=== PATIENT | male | born 1970 | race Caucasian/White ===

== ENCOUNTER 2022-06-23 16:22 | Outpatient (REF) | payer OTHER, SELFPAY | END 2022-06-23 16:23 | disposition home or self-care (01) | LOC: LBN 16:22 | PROVIDERS: PCP Nurse Practitioner Adult Health; Visit Provider Nurse Practitioner Family | DX: L02.811 Cutaneous abscess of head [any part, except face] (principal) | CPT/HCPCS: 87070; 87205 ==

== ENCOUNTER 2023-09-21 02:21 | Outpatient (CLI) | payer OTHER, SELFPAY ==
[2023-09-21 08:53] LABS: ALT 21 U/L (16-63); AST 13 U/L (15-37); Albumin 3.9 g/dL (3.4-5.0); Alkaline Phosphatase 40 U/L (46-116); Anion Gap 8.1 mmol/L (3-11); BUN 15 mg/dL (7-18); CO2 30.9 mmol/L (21.0-32.0); Calculated LDL 128 mg/dL (<100); Chloride 105 mmol/L (98-107); Cholesterol 205 mg/dL (<200); Glucose 108 mg/dL (74-106); HDL Cholesterol 49 mg/dL (40-60); Sodium 144 mmol/L (136-145); Total Protein 7.8 g/dL (6.4-8.2); Triglyceride 141 mg/dL (<150)
== END 2023-09-21 02:22 | disposition home or self-care (01) ==
LOC: LBO 02:21
PROVIDERS: PCP Family Medicine; Referring Provider Family Medicine; Visit Provider Family Medicine
DX: Z00.00 Encounter for general adult medical examination without abnormal findings (principal); Z13.6 Encounter for screening for cardiovascular disorders
CPT/HCPCS: 36415; 80053; 80061

== ENCOUNTER → 2023-10-19 02:03 | Outpatient (CLI) | payer OTHER, SELFPAY ==
--- NOTE | 2023-10-19 07:31 | DI.CT_ITS ---
Exam(s) CT ABDOMEN PELVIS W EXAM: CT ABDOMEN PELVIS W CLINICAL HISTORY: recurrent right inguinal hernia,k40.91,k40.90. TECHNIQUE: Imaging Protocol: Axial computed tomography images with coronal and sagittal reformatted images were created and reviewed CONTRAST MATERIAL: Intravenous: Omnipaque 350 Contrast volume:100 ml Oral: yes / COMPARISON: No exams were available for comparison FINDINGS: ABDOMEN and PELVIS: Lung Bases: No acute findings. Liver: Normal density. No measurable mass. Gallbladder and biliary tract: No radiodense calculus or dilation. Pancreas: Normal density. No abnormal calcifications or inflammatory process. No evidence of mass. Spleen: Normal. Kidneys: Normal size, contour and axis. No radiodense stones. No obstructive uropathy. No suspicious masses seen. Adrenal glands: No masses seen. Vasculature: Abdominal aorta non-dilated. Soft tissues: Prior right inguinal hernia repair. Recurrent large right inguinal hernia containing l oops of nonobstructed small bowel. Wide hernia neck. Small fatty containing left inguinal hernia. Bladder: No gross wall thickening. No calculi.No focal mass. Bowel: No obstruction. No bowel wall thickening. Appendix normal. Peritoneal cavity: No ascites. No focal collection or mesenteric inflammatory response. Bones: Unremarkable for age. Reproductive organs: Within normal limits. Lymph nodes: Unremarkable. IMPRESSION:: Large recurrent right inguinal hernia containing loops of nonobstructed small bowel. S mall left fatty containing inguinal hernia. RADIATION DOSE DELIVERED: 1,393.14mGy.cm Total DLP DATA REPOSITORY: All CT scans at this facility are submitted to the National Radiology Data Registry (NRDR) Dose Index Registry (DIR) with the [employer] ([employer]). RADIATION OPTIMIZATION: All CT scans at this facility use at least one of these dose optimization te chniques: automated exposure control; mA and/or kV adjustment per patient size (includes targeted exa ms where dose is matched to clinical indication); or iterative reconstruction.
[2023-10-19] MEDS: Barium Sulfate 2% W/V-Berry Smoothie 450 ML BTL PO ×2 (12:33→12:34)
[2023-10-19 13:03] LABS: Abs Immature Grans 0.03 10^3/uL (0.0-0.06); Absolute Basophil Count 0.04 10^3/uL (0.0-0.2); Absolute Eosinophil Count 0.05 10^3/uL (0.0-0.7); Absolute Lymphocyte Count 2.01 10^3/uL (1.2-3.4); Absolute Monocyte Count 0.43 10^3/uL (0.1-0.8); Absolute Neutrophil Count 6.92 10^3/uL (1.2-6.7); Basophils % 0.4; Eosinophils % 0.5; HCT 45.7 % (40.0-50.0); HGB 15.4 g/dL (13.5-17.5); Immature Grans % 0.3; Lymphocytes % 21.2; MCH 31.4 pg (27.0-33.0); MCHC 33.7 % (32.0-36.0); MCV 93 fL (80-95); MPV 9.3 fL (8.0-11.0); Monocytes % 4.5; Neutrophils % 73.1; Platelet Count 310 10^3/uL (130-400); RBC 4.91 10^6/uL (4.36-5.78); RDW 12.7 % (11.8-14.1); RDW-SD 43.3 fL; WBC 9.48 10^3/uL (4.4-10.8)
[2023-10-19 13:17] LABS: ALT 22 U/L (16-63); AST 14 U/L (15-37); Albumin 4.3 g/dL (3.4-5.0); Alkaline Phosphatase 43 U/L (46-116); Anion Gap 10.4 mmol/L (3-11); BUN 15 mg/dL (7-18); Bilirubin, Total 1.4 mg/dL (0.2-1.0); CO2 26.6 mmol/L (21.0-32.0); CREATININE 0.9 mg/dL (0.70-1.30); Calcium 9.4 mg/dL (8.5-10.1); Chloride 106 mmol/L (98-107); Estimated GFR 102.12 (mL/min/1.73m2); Glucose 93 mg/dL (74-106); Potassium 3.7 mmol/L (3.5-5.1); Sodium 143 mmol/L (136-145); Total Protein 7.8 g/dL (6.4-8.2)
[2023-10-19] MEDS: Normal Saline - Diluent 50 ML VIAL IJ (14:39)
[2023-10-19] MEDS: Omnipaque 350 MG/ML 100 ML BTL IJ (14:39)
[2023-10-19] MEDS: Normal Saline Flush 10 ML SYR IVP (14:40)
== END ==
PROVIDERS: PCP Family Medicine; Visit Provider Surgery
DX: K40.91 Unilateral inguinal hernia, without obstruction or gangrene, recurrent (principal)
CPT/HCPCS: 80053; 74177; 85025; J3490

== ENCOUNTER 2023-10-26 06:09 | Day surgery (SDC) | payer OTHER, SELFPAY ==
--- NOTE | 2023-10-25 16:21 | PDOC.DSDIS_ITS ---
Date of service: 10/26/23 Time of Service: 11:56 Discharge Plan Disposition Patient Disposition: Home Condition: Good Discharge Details Reason For Visit: right inguinal hernia repair Attending Provider: Kenzie Polanco Primary Care Provider: Aly Luther Home Meds and New Rx's Prescriptions: New tramadol 50 mg tablet 50 mg PO Q4H PRNQty: 14 0RF Continued fexofenadine [Breonna Allergy] 180 mg tablet 180 mg PO DAILY Desgen DM (pseudoephedrine) 30-10-200 mg tablet 1 cap PO ONCE Discharge Instructions Additional Instructions: Dr. Polanco HERNIA REPAIR ? POSTOPERATIVE INSTRUCTIONS Patients who have this type of surgery can usually be expected to return to work within two weeks and have minimal amounts of discomfort. ? ACTIVITY: The day of surgery should be spent resting. However, you can be up for short periods of time, I.E., going to the bathroom or kitchen. Avoid lifting or straining. On the day following surgery, you can be up and about as desired. ? LIFTING: Restrict your lifting to no more than five (5) pounds for two weeks after surgery. ??We will decide when you are done with restrictions and when you can return to work, at your follow-up appointment.? No sexual activity for two weeks.? ? DIET: There are no dietary restrictions following surgery. However, you may want to start with small amounts of liquids to avoid nausea the day of surgery. ? INCISION CARE: You will notice purple skin glue closing the incision.? Do not peel this off- it will wear off on its own.? After 24 hours you may shower. The dressing may be replaced for comfort, but is not necessary. ?An ice bag may be applied to the incision for 72 hours following surgery. ? SIGNS OF INFECTION: It is not unusual to have some black and blue discoloration of the skin around the incision, but also scrotum and penis.? ?It will slowly disappear. If you have any increased redness, drainage, fever (above 100 degrees), please contact your doctor for an examination. ? DISCOMFORT: You may expect to have some mild discomfort at the incision sight. If severe pain develops you should contact your doctor for further instructions. ? URINATION: Patients who have surgery occasionally have problems urinating. If you experience problems and are not able to urinate within 6 hours following your surgery, please call your doctor immediately or go to your nearest Emergency Room for evaluation. ? DRIVING: NO driving for three (3) days after surgery, or if you are still taking narcotic pain medication.? ? MEDICATIONS: Alternate Tylenol 1000mg by mouth every 8 hours and Ibuprofen 600mg every 6 hours. ?Make sure you take ibuprofen with food and not on an empty stomach. ?Take the Tylenol and ibuprofen continuously for the first 72hrs- not just when you have pain.? Use the tramadol for breakthrough pain/pain >7.? Use ICE!?? Twenty minutes on, and then off, continuously for the first 72hours. If you are taking narcotic pain medication, follow the instructions on the label and do not drive. Pain medications can make you very constipated. Make sure you are moving your bowels daily. If not, take Miralax or Milk of Magnesia.?? Anesthesia makes you very constipated.? Take a dose of milk of magnesia the morning after surgery. ? REPORT: Unusual swelling, severe pain, unresolved nausea, signs of infection, or difficulty in urination to your surgeon. Follow up in clinic with Dr. Polanco in 2 weeks.? [phone] Stand Alone Forms: Anesthesia Discharge Inst., Marni.Nerve Block Instructions, Dwayne Santos ([facility]) Activity:: see above Remove Dressings/Wound Care:: 24 hours Shower/Bathe:: 24 hours Diet:: see above Discharge Orders Discharge Orders: Discharge Order (Routine); Ordered 10/26/23 Ordered By: Kenzie Polanco DS: Diagnosis Discharge Diagnosis (1) Recurrent right inguinal hernia: Status: Acute Asessment and Plan: The patient is doing well post-op from their right inguinal hernia repair.? They are having no nausea or vomiting. They are tolerating liquids and a snack. The pt is not having any chest pain or SOB.? Their pain is adequately controlled. They have been able to urinate.? ?HEENT:? no eye pain/drainage/redness/swelling. Mild sore throat ?Cardio- NSR, no chest pain, BP stable- see VS record ?Pulm: no sob or productive cough. No hemoptysis ?Incision- dressing is c/d/i w/ no excessive bleeding or drainage ?I discussed with the patient the findings at the time of surgery and the patient?s progress. ?We reviewed expectations at home; what the patient could expect for recovery time, and in the post-operative period.? We discussed the importance of walking to avoid blood clots and pneumonia.? We discussed and reviewed the patient's po st-operative wound care and dressing needs.?? We reviewed their step-clarke pain management plan, Rx called to the pharmacy of their choice.? We reviewed activity and limitations-see discharge instructions. We reviewed warning signs, and when to seek medical attention- see d/c instructions.?? Patient was given a postoperative follow-up appointment. Patient verbalized understanding of their postoperative instructions, how do to take care of themselves and their incision, and the pain management plan. Please see discharge instructions.?
--- NOTE | 2023-10-25 16:25 | ROE_ITS ---
Date of service: 10/26/23 Time of Service: 10:00 Operative Note Operative Note DATE OF PROCEDURE: 10/26/23 PRE-OP DIAGNOSIS: recurrent direct right inguinal hernia POST-OP DIAGNOSIS: same new onset A. fib PROCEDURE: open repair recurrent right inguinal hernia SURGEON: Kenzie Polanco ANESTHESIA TYPE: Local By Surgeon, General LMA/ETT and Primary Nerve Block Refer to Anesthesia Record ESTIMATED BLOOD LOSS: 5 PATHOLOGY: none sent COMPLICATIONS: None Patient was transported to: PACU Patient's condition: stable Procedure Description: INDICATIONS: The pt is here today for surgery regarding symptomatic recurrent right directinguinal hernia that has failed outpatient conservative medical management and he is here today for repair. He did have mesh placed previously. informed consent was obtained, explaining risks and benefits of the procedure including but not limited to bleeding, infection, pneumonia, blood clots, chronic pain, chronic numbness, damage to testicle resulting in removal, recurrence of hernia, reaction to Mesh necessitating removal, and other unforetold complications, and complications of anesthesia-which were addressed by the SEATING UPHOLSTERER. The patient is marked in preOp prior to the procedure DESCRIPTION OF PROCEDURE:? The pt is then brought to the operative room suite. Anesthesia was administered per the Department of Anesthesia. The patient was prepped and draped in the usual sterile fashion using ChloraPrep scrub solution. Pause for the cause was done. He did receive preop IV antibiotics, and 30 mL of .25% Marcaine w/ epinephrine was used for local anesthetization. A #12 blade was used to make an incision over the external ring. Electrocautery used to provide hemostasis and dissect down to the fascia. The fascia was pretty much obliterated and there was nothing to open. The cord is elevated. The nerve was not identified. There is not a? cord lipomas. ?Electro-cautery is used to provide hemostasis. A Roderick drain was placed around the cord to assist in mobilization. The cord was explored. There was no hernia sac on the cord. There is a very large direct hernia pushing through the floor. the hernia lies medial to the previous mesh that was placed. I removed about 50% of the flat mesh. I could not identify a plug. e transversalis in this area is pretty much obliterated. The sac is dissected out from and off the old mesh. There is a significant amount tissue reaction/the mesh is well incorporated into the tissue. There is no signs of chronic infection or inflammation. The sac is opened and does contain omentum. The sac is excised. The omentum is excised using the LigaSure. A extra-large plug is then placed into the defect this is oversewn between what is remaining of the trancversalis superiorly and then onto old mesh inferiorly. There is no transversalis inferiorly. the patch was then placed on the floor and sewn in using 2-0 Vicryl sewn into the pubic tubercle and the conjoint tendon and onto the old mesh.? The tails of the mesh are brought around the very superior portion of the cord and tucked under the rements of the external oblique. The external oblique is intimately adhered to the mesh. ?The wound was copiously irrigated. There was no bleeding noted. The drain was placed. The drain is removed.? All structures are returned to there normal anatomic position.? The external oblique is than closing in a running fshion with 2-0 vicryl, taking care to not incorporate the nerve into the incision. Deep tissue was approximated with 3-0 Vicryl and skin was approximated with 4-0 Monocryl in a running subcuticular fashion. Steri tapes and sterile dressings are applied. The patient tolerated the procedure without complications to recovery in stable condition.
--- NOTE | 2023-10-25 18:24 | ANES.PREOP_ITS ---
General Info Date of Service Date Performed: 10/26/23 Height: 5 ft 11.75 in Weight: 106.594 kg Body Mass Index (BMI): 32.1 Surgical Procedure: Operation Date: 10/26/23 07:40 Proposed Procedure Side Surgeon p Herniorrhaphy Inguinal Right Kenzie Polanco DO Meds Allergies and Home Medications Allergies Allergy/AdvReac Type Severity Reaction Status Date / Time Penicillins Allergy unknown Verified 10/26/23 06:19 Home Medication Medication Instructions Recorded fexofenadine 180 mg tablet 180 mg PO DAILY 09/10/23 (Breonna Allergy) [id number] 30 1 cap PO ONCE 10/11/23 mg-10 mg-200 mg tablet (Desgen DM (pseudoephedrine)) Current Visit Medications: Current Medications Generic Name Dose Route Start Last Admin Trade Name Freq PRN Reason Stop Dose Admin Acetaminophen 1,000 mg 10/26/23 06:00 Acetaminophen 500 Mg Tab PO 10/26/23 16:00 PREOP BUTCH Gabapentin 600 mg 10/26/23 06:00 Gabapentin 300 Mg Cap PO 10/26/23 16:00 PREOP BUTCH Ringer's Solution 1,000 mls @ 80 mls/hr 10/26/23 06:00 IV 11/24/23 23:59 INFUSION BUTCH Clindamycin Phosphate/Dextrose 600 mg in 50 mls @ 100 mls/hr 10/26/23 06:00 Cleocin In D5w IVPB 10/26/23 16:00 PREOP BUTCH Ondansetron HCl 4 mg/ Sodium 52 mls @ 200 mls/hr 10/26/23 04:15 Chloride IVPB 11/25/23 04:14 Q6H PRN PRN IV Miscellaneous Supplies 1 each 10/26/23 06:00 Iv Access IV 11/24/23 23:59 DIRECTED BUTCH Morphine Sulfate 2 mg 10/26/23 04:15 Morphine 4 Mg/Ml Syr IVP 11/25/23 04:14 Q1H PRN PRN Sodium Chloride 0 ml 10/26/23 06:00 Normal Saline Flush 10 Ml Syr IV 11/24/23 23:59 PRN PRN Sodium Chloride 0 ml 10/26/23 06:00 Normal Saline 10 Ml Vial IJ 11/24/23 23:59 DIRECTED PRN Sterile Water 0 ml 10/26/23 06:00 Water,Injection,Sterile 10 Ml Vial IJ 11/24/23 23:59 DIRECTED PRN Tramadol HCl 50 mg 10/26/23 04:15 Tramadol 50 Mg Tab PO 11/25/23 04:14 Q6H PRN PRN Pain PFSH Active Problems Active Problems: Problem Status Onset Code Recurrent right inguinal hernia K40.91 Inguinal hernia of left side without obstruction or gangrene K40.90 Surgical History Surgical History H/O inguinal hernia repair (09/05/12) Tobacco Smoking/Tobacco Use Status: Never Second hand exposure: No Alcohol Alcohol Intake: never Substance Use Substance use: Never Substance use type: does not use Vital Signs and Lab Results Vital Signs Most Recent Vital Signs in EMR: Temp Pulse Resp BP Pulse Ox 36.1 C L 70 16 137/91 H 98 10/26/23 06:09 10/26/23 06:09 10/26/23 06:09 10/26/23 06:09 10/26/23 06:09 Lab Results Blood Type / Crossmatch: No Data to Display Complete Blood Count: White Blood Count 9.48 10^3/uL (4.4-10.8) 10/19/23 12:56 Red Blood Count 4.91 10^6/uL (4.36-5.78) 10/19/23 12:56 Hemoglobin 15.4 g/dL (13.5-17.5) 10/19/23 12:56 Hematocrit 45.7 % (40.0-50.0) 10/19/23 12:56 Platelet Count 310 10^3/uL (130-400) 10/19/23 12:56 Complete Metabolic Panel: Sodium 143 mmol/L (136-145) 10/19/23 12:56 Potassium 3.7 mmol/L (3.5-5.1) 10/19/23 12:56 Chloride 106 mmol/L (98-107) 10/19/23 12:56 Carbon Dioxide 26.6 mmol/L (21.0-32.0) 10/19/23 12:56 BUN 15 mg/dL (7-18) 10/19/23 12:56 Creatinine 0.9 mg/dL (0.70-1.30) 10/19/23 12:56 Est GFR (CKD-EPI 2020) 102.12 (mL/min/1.73m2) 10/19/23 12:56 Calcium 9.4 mg/dL (8.5-10.1) 10/19/23 12:56 Albumin 4.3 g/dL (3.4-5.0) 10/19/23 12:56 Glucose 93 mg/dL (74-106) 10/19/23 12:56 Liver Function Panel: Alanine Aminotransferase (ALT/SGPT) 22 U/L (16-63) 10/19/23 12: 56 Aspartate Amino Transf (AST/SGOT) 14 U/L (15-37) L 10/19/23 12: 56 Coagulation Panel: No Data to Display Cardiac Panel: No Data to Display Arterial Blood Gas: No Data to Display Venous Blood Gas: No Data to Display Pancreas Panel: No Data to Display Thyroid Panel: No Data to Display Infectious Disease: No Data to Display Blood Cultures: No Data to Display Toxicology Panel: No Data to Display Anesthesia Assessment and Plan Anesthesia History Personal History: No History of Anesthesia Complications Family History: No Family History of Anesthesia Complications Exercise Tolerance Exercise Tolerance: Metabolic Equivalents>4 Cardiac & Pulmonary Exam Cardiac Exam: Normal S1/S2 Heart Sounds Pulmonary Exam: Clear Bilateral Breath Sounds Implantable Cardiac Device Does patient have a Pacemaker or an ICD?: No Airway Exam Known Difficult Airway: No Mallampati Class: 3 Mouth Opening: Normal (> 3cm) Thyromental Distance: Greater than 3 cm Neck Range of Motion: Full ROM Neck Circumference: Thick Teeth Condition: Normal Dentition ASA Classification ASA Score: ASA 2 Emergency Case?: No NPO Status NPO Status: NPO Clears >2 hours, Solids >8 hours Anesthesia Plan Resuscitation Status: Full Code Anesthesia Technique: General Anesthesia Airway Planned: LMA Pain Management: Surgeon and patient request nerve block Monitors Used: Standard Monitors Preoperative Comments:: 53 yo male for hernia repair. Sig PMHx: never smoker,
[2023-10-26] VITALS (7 sets, daily range): BP systolic 107–137; BP diastolic 81–93; PULSE 70–90; RESP 16–19; TEMP 36.1–36.3; O2SAT 96–100; BMI 32.1
[2023-10-26] MEDS: Gabapentin 300 MG CAP 600 MG PO (06:34)
[2023-10-26] MEDS: Acetaminophen 500 MG TAB 1000 MG PO (06:34)
[2023-10-26] MEDS: Lactated Ringers 1,000 ML 80 ML IV (06:38)
--- NOTE | 2023-10-26 08:00 | RT.EKG_ITS ---
APPROVED REPORT Exam: Resting ECG Reason for Exam: ? new onset afib. Patient Location: O HR:92 bpm ECG Measurements Heart Rate 92 AXIS [place] [id number] P [id number] QRSd 89 QRS 44 QT 380 T 29 QTc 468 Conclusion Atrial fibrillation...V-rate 80-116, irreg A-activity Otherwise normal ECG
--- NOTE | 2023-10-26 08:22 | W.ANESNERVE ---
Nerve Block Single Injection Procedure Date and Time Date Performed: 10/26/23 Procedure Start: 07:54 Location Where Procedure Performed Procedure Location: Operating Room Procedure Stop: 08:00 Reason Performed: Postoperative Analgesia Requesting Provider: Kenzie Polanco Timeout Performed Timeout Performed: Yes Monitoring Used ECG, Blood Pressure, SpO2 and ETCO2 Sterility Sterility: Hand Hygiene, Surgical Cap, Surgical Mask, Sterile Gloves and Chlorhexidine Sedation Given During Procedure Sedation Given (Indicate Dose Given): No Sedation given Patient Mental Status Patient Mental Status: Performed under general anesthesia Nerve Block 1st Nerve Block: Laterality: Right Block Type: TAP Unilateral Ultrasound Image Saved?: Yes Needle / Catheter Used: 100mm SonoPlex II Local Anesthetic Bolus (Indicate Dose Given): Bupivacaine 0.375% Dose:: 12 mL Additives (Indicate Dose Given): Epinephrine to make 1:400,000 (2.5mcg/ml) Dose:: 30 mcg and Precedex Dose:: 40 mcg Ultrasound: Sterile probe cover and gel used Nerve Stimulator: Not Used Paresthesia: None Procedure Tolerated: No Complications Procedure Outcome: Successful Procedure Comment: challenging anatomy on US. Performed By: Joe Silva
[2023-10-26] MEDS: Bupivacaine LIPOSOME/PF 133 MG/10 ML VIAL IJ (09:03)
[2023-10-26] MEDS: Bupivacaine 0.25% Pres-Free 30 ML VIAL (09:03)
--- NOTE | 2023-10-26 10:54 | W.ANESPOSTOP ---
Postoperative Evaluation Date, Time and Location Date Performed: 10/26/23 Time Performed: 11:00 Patient Location: Day Surgery Unit Vital Signs Most Recent Imported Vital Signs: Most Recent Vital Signs Temp Pulse Resp BP Pulse Ox 36.2 C L 90 18 119/93 H 96 10/26/23 10:24 10/26/23 10:24 10/26/23 10:24 10/26/23 10:24 10/26/23 10:24 Pain Score Most Recent Pain Score: Most Recent Pain Score Pain Level 0 10/26/23 10:24 Assessment Mental Status: Awake (Alert & Oriented to Patient Baseline) Airway and Respiratory Function: Patent airway with normal (patient baseline) respiratory exam Cardiovascular Function: Hemodynamically Stable Hydration Status: Adequately Hydrated Nausea & Vomiting: No Nausea or Vomiting Pain: Pain is tolerable per patient Peripheral Nerve Block: Regional nerve block not resolved at time of post operative discharge Teaching Patient Teaching: Advised to seek followup for the following concerns (See explanation) Concerns: New Onset Atrial Fibrillation Postoperative Comments:: Discussed Afib with him and his SO. Workload placed with his PCP. He was encouraged to reach out to his primary soon about following up for his Afib.
[2023-10-26 11:43] LABS: ALT 18 U/L (16-63); AST 13 U/L (15-37); Albumin 3.7 g/dL (3.4-5.0); Alkaline Phosphatase 41 U/L (46-116); Anion Gap 8.8 mmol/L (3-11); BUN 12 mg/dL (7-18); Bilirubin, Total 0.7 mg/dL (0.2-1.0); CO2 25.2 mmol/L (21.0-32.0); Calcium 8.6 mg/dL (8.5-10.1); Chloride 105 mmol/L (98-107); Glucose 121 mg/dL (74-106); Magnesium 2.4 mg/dL (1.8-2.4); Potassium 4.6 mmol/L (3.5-5.1); Sodium 139 mmol/L (136-145); TSH (W/Ref FT4) 1.42 uIU/mL (0.36-3.74); Total Protein 7.2 g/dL (6.4-8.2); Troponin I < 50 ng/L (< or =60)
--- NOTE | 2023-10-26 12:12 | W.PM.DSUDISC ---
Date of service: 10/26/23 Time of Service: 12:12 Discharge Plan Disposition Patient Disposition: Home Condition: Good Discharge Details Reason For Visit: right inguinal hernia repair Attending Provider: Kenzie Polanco Primary Care Provider: Aly Luther Home Meds and New Rx's Prescriptions: New tramadol 50 mg tablet 50 mg PO Q4H PRNQty: 14 0RF Continued fexofenadine [Breonna Allergy] 180 mg tablet 180 mg PO DAILY Desgen DM (pseudoephedrine) 30-10-200 mg tablet 1 cap PO ONCE Discharge Instructions Additional Instructions: Dr. Polanco HERNIA REPAIR ? POSTOPERATIVE INSTRUCTIONS Patients who have this type of surgery can usually be expected to return to work within two weeks and have minimal amounts of discomfort. ? ACTIVITY: The day of surgery should be spent resting. However, you can be up for short periods of time, I.E., going to the bathroom or kitchen. Avoid lifting or straining. On the day following surgery, you can be up and about as desired. ? LIFTING: Restrict your lifting to no more than five (5) pounds for two weeks after surgery. ??We will decide when you are done with restrictions and when you can return to work, at your follow-up appointment.? No sexual activity for two weeks.? ? DIET: There are no dietary restrictions following surgery. However, you may want to start with small amounts of liquids to avoid nausea the day of surgery. ? INCISION CARE: You will notice purple skin glue closing the incision.? Do not peel this off- it will wear off on its own.? After 24 hours you may shower. The dressing may be replaced for comfort, but is not necessary. ?An ice bag may be applied to the incision for 72 hours following surgery. ? SIGNS OF INFECTION: It is not unusual to have some black and blue discoloration of the skin around the incision, but also scrotum and penis.? ?It will slowly disappear. If you have any increased redness, drainage, fever (above 100 degrees), please contact your doctor for an examination. ? DISCOMFORT: You may expect to have some mild discomfort at the incision sight. If severe pain develops you should contact your doctor for further instructions. ? URINATION: Patients who have surgery occasionally have problems urinating. If you experience problems and are not able to urinate within 6 hours following your surgery, please call your doctor immediately or go to your nearest Emergency Room for evaluation. ? DRIVING: NO driving for three (3) days after surgery, or if you are still taking narcotic pain medication.? ? MEDICATIONS: Alternate Tylenol 1000mg by mouth every 8 hours and Ibuprofen 600mg every 6 hours. ?Make sure you take ibuprofen with food and not on an empty stomach. ?Take the Tylenol and ibuprofen continuously for the first 72hrs- not just when you have pain.? Use the tramadol for breakthrough pain/pain >7.? Use ICE!?? Twenty minutes on, and then off, continuously for the first 72hours. If you are taking narcotic pain medication, follow the instructions on the label and do not drive. Pain medications can make you very constipated. Make sure you are moving your bowels daily. If not, take Miralax or Milk of Magnesia.?? Anesthesia makes you very constipated.? Take a dose of milk of magnesia the morning after surgery. ? REPORT: Unusual swelling, severe pain, unresolved nausea, signs of infection, or difficulty in urination to your surgeon. Follow up in clinic with Dr. Polanco in 2 weeks.? [phone] 11/08/23 @2:00pm Please call Dr. Espinoza this week to schedule clinic appt for new on-set Srinivasa plummer in surgery. Stand Alone Forms: Anesthesia Discharge Inst., Nerve Block Instructions, Dwayne Santos ([facility]) Referrals: Kenzie Polanco, [OSTEOPATHIC DOCTOR] - 11/08/23 2:00 pm Activity:: see above Remove Dressings/Wound Care:: 24 hours Shower/Bathe:: 24 hours Diet:: see above Discharge Orders Discharge Orders: Discharge Order (Routine); Ordered 10/26/23 Ordered By: Kenzie Polanco DS: Diagnosis Discharge Diagnosis (1) Recurrent right inguinal hernia: Status: Acute
== END 2023-10-26 12:27 | disposition home or self-care (01) ==
LOC: SUR 06:09
PROVIDERS: PCP Family Medicine; Visit Provider Surgery
PROC: (CPT 49520; principal; 2023-10-26 07:30)
DX: K40.91 Unilateral inguinal hernia, without obstruction or gangrene, recurrent (principal)
CPT/HCPCS: 49520; 36415; 76942; 80053; 83735; 84443; 84484; 93005; 93010; C1781; C9290; J0171; J0665; J0690; J1100; J1885; J2405; J2704; J3475

== ENCOUNTER 2023-10-28 15:08 | Outpatient (CLI) | payer OTHER, SELFPAY ==
--- NOTE | 2023-10-28 15:00 | RT.EKG_ITS ---
APPROVED REPORT Exam: Resting ECG Reason for Exam: New onset afib Patient Location: O HR:92 bpm ECG Measurements Heart Rate 92 [place] [id number] P [id number] QRSd 100 QRS 61 QT 374 T 33 QTc 463 Conclusion Atrial fibrillation...V-rate 61-115, irreg A-activity
== END 2023-10-28 15:09 | disposition home or self-care (01) ==
LOC: DI.KIM 15:09
PROVIDERS: PCP Family Medicine; Visit Provider Family Medicine
DX: I48.91 Unspecified atrial fibrillation (principal)
CPT/HCPCS: 93010

== ENCOUNTER 2023-11-12 11:19 | Outpatient (CLI) | payer OTHER, SELFPAY ==
--- NOTE | 2023-11-12 11:15 | RT.EKG_ITS ---
APPROVED REPORT Exam: Resting ECG Reason for Exam: baseline Patient Location: O HR:91 bpm ECG Measurements Heart Rate 91 AXIS [place] [id number] P [id number] QRSd 97 QRS 56 QT 377 T 34 QTc 464 Conclusion Atrial fibrillation...V-rate 79-106, irreg A-activity Baseline wander in lead(s) V5 Otherwise normal ECG
== END 2023-11-12 11:20 | disposition home or self-care (01) ==
LOC: DI.CARD 11:19
PROVIDERS: PCP Family Medicine; Visit Provider Internal Medicine Cardiovascular Disease
DX: I48.19 Other persistent atrial fibrillation (principal)
CPT/HCPCS: 93010

== ENCOUNTER → 2023-12-06 03:44 | Outpatient (CLI) | payer OTHER, SELFPAY ==
--- NOTE | 2023-12-06 14:30 | DI.US_ITS ---
APPROVED REPORT EXAM: Comprehensive 2D, Doppler, and color-flow Echocardiogram Patient Location: Out-Patient Sofa Cover Inspector: Valeria Colon RDCS (AE) Indications: New onset A Fib, Family h/o heart disease Other Information Study Quality: Adequate. Technically limited study due to body habitus, arrhythmia. Conclusion Normal left ventricualar wall thickness and chamber size . EF is 55 %. Patient is in atrial fibrillat ion with beat to beat variation Normal right ventricular size and function Mildly enlarged left atrium. Normal right atrial size There is no structural or hemodynamically significant valvular disease Estimated irhgt ventricular systolic pressure is 16 mmHg Dilated ascending aorta 4.27 cm Wall motion Left Ventricle The left ventricle is normal size. The overall left ventricular systolic function appears normal. Ar rhythmia throughout exam. There is normal left ventricular wall thickness. There is no ventricular s eptal defect visualized. LVEF is 55%. Right Ventricle The right ventricle is normal size. The right ventricular systolic function is normal. Atria Left atrium is mildly dilated. The right atrium size is normal. The interatrial septum is intact with no evidence for an atrial septal defect. Aortic Valve The aortic valve is normal in structure. Aortic valve is trileaflet. There is no aortic valvular sten osis. No aortic regurgitation is present. Mitral Valve The mitral valve is normal in structure. No evidence of mitral valve stenosis. Trace to mild mitral r egurgitation. Tricuspid Valve The tricuspid valve is normal in structure. There is no tricuspid valve stenosis. Trace tricuspid reg urgitation. The RVSP is 15.7 mmHg. Pulmonic Valve The pulmonary valve is normal in structure. There is no pulmonic valvular stenosis. Trace pulmonic re gurgitation. Great Vessels The aortic root is normal in size. The ascending aorta is moderately dilated. Aortic arch is normal i n caliber. IVC is normal in size and collapses >50% with inspiration. Pericardium There is no pericardial effusion. 2D Dimensions IVSD d PLAX 1.03 cm M: 0.6-1.2 Ao Root d 3.73 cm M: 3.1 - 3.7 LVPW d PLAX 1.00 cm M: 0.6 - 1.2 Ao Asc Diam d 4.27 cm M: 2.6 - 3.4 LVID d PLAX 5.32 cm M: 4.2 - 5.8 LVDs 3.74 cm M: 2.5 - 4.0 LV EF Teichholz 56.3 % FS 29.67 % LV EDV (Teich) 136.4 mL LV ESV (Teich) 59.6 mL LA Volume LA Length A4C 6.6 cm LA Length A2C 6.7 cm LA Area A4C s 25.75 cm2 LA Area A2C s 33.80 cm2 LA Vol A4C A-L 85.04 mL LA Vol A2C A-L 144.51 mL LA Vol Biplane A-L 111.6 mL LA Vol/BSA A4C A-L LA Vol/BSA A2C A-L LA Vol/BSA BP A-L 48.1 mL/m2 LA Vol A4C MOD 78.0 mL LA Vol A2C MOD 137.1 mL LA Vol BP MOD 103.8 mL RA Volume RA Area A4C 17.7 cm2 RA ESV A4C (A-L) 46.1mL RA Vol/BSA A4C A-L RA Length A4C 5.7 cm RA ESV A4C (MOD) 44.6mL Aortic Valve AoV Vmax 1.17 m/s LVOT Vmax 1.01 m/s AoV Peak Grad 5.5 mmHg LVOT Peak Grad 4.1 mmHg AoV Area (Vmax) 3.00 cm2 LVOT VTI 0.174 m AoV VTI 0.202 m LVOT Mean Grad 1.9 mmHg AoV Mean Dony. 0.90 m/s LVOT SV 60.82 mL AoV Mean Grad 3.6 mmHg LVOT Diam s 2.10 cm AoV Area (VTI) 3.01 cm2 Velocity Ratio 0.86 Mitral Valve MV Vmax TIPS 0.54 m/s MV Mean Grad 0.5 (<2mmHg) MV VTI 0.137 m Pulmonary Valve PV Vmax 0.90 (0.5-1.5 m/s) RVOT Vmax 0.69 m/s PV Peak Grad 3.3 mmHg RVOT Peak Gr. 1.9 mmHg PV Mean Dony 0.67 m/s RVOT VTI 0.128 m PV Mean Grad 2.0 mmHg RVOT Mean Gr. 1.2 mmHg Tricuspid Valve RA Pressure 3.00 mmHg TR Vmax 1.78 m/s TR Peak Grad 12.6 mmHg RVSP (TR) 15.7 mmHg
== END ==
PROVIDERS: PCP Family Medicine; Visit Provider Surgery
DX: I48.19 Other persistent atrial fibrillation (principal); Z82.49 Family history of ischemic heart disease and other diseases of the circulatory system
CPT/HCPCS: 93306

== ENCOUNTER 2023-12-14 06:10 | Day surgery (SDC) | payer OTHER, SELFPAY ==
--- NOTE | 2023-12-14 06:19 | W.ANESPRE ---
General Info Date of Service Date Performed: 12/14/23 Height: 6 ft Weight: 111.584 kg Body Mass Index (BMI): 33.3 Surgical Procedure: Operation Date: 12/14/23 07:30 Proposed Procedure Side Surgeon p Cardioversion Montserrat Pappas MD Meds Allergies and Home Medications Allergies Allergy/AdvReac Type Severity Reaction Status Date / Time Penicillins Allergy unknown Verified 12/14/23 06:19 Home Medication Medication Instructions Recorded fexofenadine 180 mg tablet 180 mg PO DAILY 09/10/23 (Breonna Allergy) apixaban 5 mg tablet 5 mg PO BID #180 tabs 11/12/23 Current Visit Medications: Current Medications Generic Name Dose Route Start Last Admin Trade Name Freq PRN Reason Stop Dose Admin Sodium Chloride 1,000 mls @ 30 mls/hr 12/14/23 06:00 Saline 1000ml Bag IV 01/13/24 05:59 INFUSION BUTCH Ringer's Solution 1,000 mls @ 30 mls/hr 12/14/23 06:00 IV 01/12/24 23:59 INFUSION BUTCH IV Miscellaneous Supplies 1 each 12/14/23 06:00 Iv Access IV 01/12/24 23:59 DIRECTED BUTCH Sodium Chloride 0 ml 12/14/23 06:00 Normal Saline Flush 10 Ml Syr IV 01/12/24 23:59 PRN PRN Sodium Chloride 0 ml 12/14/23 06:00 Normal Saline 10 Ml Vial IJ 01/12/24 23:59 DIRECTED PRN Sterile Water 0 ml 12/14/23 06:00 Water,Injection,Sterile 10 Ml Vial IJ 01/12/24 23:59 DIRECTED PRN [facility] Active Problems Active Problems: Problem Status Onset Code Family history of heart disease Z82.49 Persistent atrial fibrillation I48.19 Recurrent right inguinal hernia K40.91 Inguinal hernia of left side without obstruction or gangrene K40.90 Surgical History Surgical History H/O inguinal hernia repair (10/2023) [facility] Tobacco Smoking/Tobacco Use Status: Former Tobacco Use Second hand exposure: No Alcohol Alcohol Intake: never Substance Use Substance use: Never Substance use type: does not use Vital Signs and Lab Results Vital Signs Comment Vital Signs Comment:: Temp Pulse Resp BP Pulse Ox 36.4 C L 64 16 126/95 H 97 12/14/23 06:40 12/14/23 06:40 12/14/23 06:40 12/14/23 06:40 12/14/23 06:40 Lab Results Blood Type / Crossmatch: No Data to Display Complete Blood Count: No Data to Display Complete Metabolic Panel: No Data to Display Liver Function Panel: No Data to Display Coagulation Panel: No Data to Display Cardiac Panel: No Data to Display Arterial Blood Gas: No Data to Display Venous Blood Gas: No Data to Display Pancreas Panel: No Data to Display Thyroid Panel: No Data to Display Infectious Disease: No Data to Display Blood Cultures: No Data to Display Toxicology Panel: No Data to Display Imaging and Studies Imaging and Studies Study information below may be from another EMR and interpreted by another provider. Please see original notes in EMR for more complete details. EKG Summary: DATE/TIME OF SERVICE: 11/12/23 1016 : 1970 PERFORMING LOCATION: .CARD APPROVED REPORT Exam: Resting ECG Reason for Exam: baseline Patient Location: O HR:91 bpm ECG Measurements Heart Rate 91 AXIS HI [id number] P [id number] QRSd 97 QRS 56 QT 377 T34 QTc 464 Conclusion Atrial fibrillation...V-rate 79-106, irreg A-activity Baseline wander in lead(s) V5 Echocardiogram Summary: Date of Exam: 12/06/23 Sex: M Admission Date: 12/06/23 : 1970 Age: 53 APPROVED REPORT EXAM: Comprehensive 2D, Doppler, and color-flow Echocardiogram Patient Location: Out-Patient Airplane Tube Builder: Valeria Colon RDCS (AE) Indications: New onset A Fib, Family h/o heart disease Other Information Study Quality: Adequate. Technically limited study due to body habitus, arrhythmia. Conclusion Normal left ventricualar wall thickness and chamber size . EF is 55 %. Patient is in atrial fibrillation with beat to beat variation Normal right ventricular size and function Mildly enlarged left atrium. Normal right atrial size There is no structural or hemodynamically significant valvular disease Estimated irhgt ventricular systolic pressure is 16 mmHg Dilated ascending aorta 4.27 cm Anesthesia Assessment and Plan Anesthesia History Personal History: No History of Anesthesia Complications Family History: No Family History of Anesthesia Complications Exercise Tolerance Exercise Tolerance: Metabolic Equivalents>4 Pertinent Negatives Pertinent Negatives: No Symptoms of GERD, No Major Pulmonary Symptoms or Complaints and No History of CVA/TIA Cardiac & Pulmonary Exam Cardiac Exam: Normal S1/S2 Heart Sounds Pulmonary Exam: Clear Bilateral Breath Sounds Implantable Cardiac Device Does patient have a Pacemaker or an ICD?: No Airway Exam Known Difficult Airway: No Mallampati Class: 3 Mouth Opening: Normal (> 3cm) Thyromental Distance: Greater than 3 cm Neck Range of Motion: Full ROM Neck Circumference: Thick Teeth Condition: Normal Dentition ASA Classification ASA Score: ASA 2 Emergency Case?: No NPO Status NPO Status: NPO Clears >2 hours, Solids >8 hours Anesthesia Plan Resuscitation Status: Full Code Anesthesia Technique: General Anesthesia Airway Planned: Natural Airway Monitors Used: Standard Monitors
[2023-12-14 06:40] VITALS: BP 126/95; PULSE 64; RESP 16; TEMP 36.4; O2SAT 97
[2023-12-14] MEDS: Normal Saline 1,000 ML 30 ML IV (06:45)
[2023-12-14 07:12] VITALS: BMI 33.3
--- NOTE | 2023-12-14 07:30 | RT.EKG_ITS ---
APPROVED REPORT Exam: Resting ECG Reason for Exam: pre op EKG Patient Location: O HR:101 bpm ECG Measurements Heart Rate 101 AXIS NE [id number] P [id number] QRSd 86 QRS 52 QT 387 T 36 QTc 503 Conclusion Atrial fibrillation...V-rate 81-138, irreg A-activity Otherwise normal ECG
--- NOTE | 2023-12-14 07:45 | RT.EKG_ITS ---
APPROVED REPORT Exam: Resting ECG Reason for Exam: post op EKG Patient Location: O HR:83 bpm ECG Measurements Heart Rate 83 AXIS WI [id number] P [id number] QRSd 95 QRS 47 QT 399 T 22 QTc 469 Conclusion Atrial fibrillation...V-rate 69-101, irreg A-activity
--- NOTE | 2023-12-14 07:51 | W.CARDVER ---
Date of service: 12/14/23 Time of Service: 07:51 Cardioversion DATE OF PROCEDURE: 12/14/23 PRE-OP DIAGNOSES: Atrial fibrillation POST-OP DIAGNOSES: same Indications: Atrial fibrillation Procedure Description: Synchronized cardioversion After informed consent was obtained patient was taken to the operating room where he was sedated under the direction of the anesthesiologist. anterior and posterior ZOLL pads were placed. When he was adequately sedated 1 synchronized shock at 150 W seconds was delivered. Atrial fibrillation persisted and a second synchronized shock at 200 W seconds resulted in sinus rhythm, which lasted less than a minute and then atrial fibrillation recurred. A third shock of 200 W seconds was administered. The patient remained in atrial fibrillation. He was brought to the recovery area where he was allowed to awaken. He will be discharged when fully awake
--- NOTE | 2023-12-14 07:53 | W.PM.DSUDISC ---
Date of service: 12/14/23 Time of Service: 07:54 Discharge Plan Disposition Patient Disposition: Home Discharge Details Reason For Visit: Atrial fibrillation Attending Provider: Montserrat Pappas Primary Care Provider: Aly Luther Home Meds and New Rx's Prescriptions: No Action fexofenadine [Breonna Allergy] 180 mg tablet 180 mg PO DAILY apixaban 5 mg tablet 5 mg PO BID Qty: 180 4RF Discharge Instructions Stand Alone Forms: DSU Cardioversion Post-Op Discharge Orders Discharge Orders: Discharge Order (Routine); Ordered 12/14/23 Ordered By: Montserrat Pappas
[2023-12-14 08:00] VITALS: BP 117/92; PULSE 77; RESP 16; TEMP 36.4; O2SAT 95
--- NOTE | 2023-12-14 08:08 | W.PM.DSUDISC ---
Date of service: 12/14/23 Time of Service: 08:08 Discharge Plan Disposition Patient Disposition: Home Condition: Stable Discharge Details Reason For Visit: Atrial fibrillation Attending Provider: Montserrat Pappas Primary Care Provider: Aly Luther Home Meds and New Rx's Prescriptions: No Action fexofenadine [Breonna Allergy] 180 mg tablet 180 mg PO DAILY apixaban 5 mg tablet 5 mg PO BID Qty: 180 4RF Discharge Instructions Stand Alone Forms: DSU Cardioversion Post-Op Discharge Orders Discharge Orders: Discharge Order (Routine); Ordered 12/14/23 Ordered By: Montserrat Pappas
[2023-12-14 08:31] VITALS: BP 122/97; PULSE 84; RESP 16; TEMP 36.4; O2SAT 95
--- NOTE | 2023-12-14 09:25 | W.ANESPOSTOP ---
Postoperative Evaluation Date, Time and Location Date Performed: 12/14/23 Time Performed: 08:30 Patient Location: Day Surgery Unit Vital Signs Most Recent Imported Vital Signs: Most Recent Vital Signs Temp Pulse Resp BP Pulse Ox 36.4 C L 84 16 122/97 H 95 12/14/23 08:31 12/14/23 08:31 12/14/23 08:31 12/14/23 08:31 12/14/23 08:31 Pain Score Most Recent Pain Score: Most Recent Pain Score Pain Level 0 12/14/23 08:31 Assessment Mental Status: Awake (Alert & Oriented to Patient Baseline) Airway and Respiratory Function: Patent airway with normal (patient baseline) respiratory exam Cardiovascular Function: Hemodynamically Stable Hydration Status: Adequately Hydrated Nausea & Vomiting: No Nausea or Vomiting Pain: Pt. Denies Any Pain Peripheral Nerve Block: Patient did not receive a nerve block
== END 2023-12-14 08:45 | disposition home or self-care (01) ==
PROVIDERS: PCP Family Medicine; Visit Provider Internal Medicine Cardiovascular Disease
PROC: 5A2204Z Restoration of Cardiac Rhythm, Single (ICD-10-PCS; CPT 92960; principal; 2023-12-14 07:30)
DX: I48.19 Other persistent atrial fibrillation (principal); Z82.49 Family history of ischemic heart disease and other diseases of the circulatory system
CPT/HCPCS: 92960; 93005; 93010; J2405; J2704

== ENCOUNTER 2023-12-28 08:32 | Outpatient (CLI) | payer OTHER, SELFPAY ==
--- NOTE | 2023-12-28 08:30 | RT.EKG_ITS ---
APPROVED REPORT Exam: Resting ECG Reason for Exam: afib Patient Location: O HR:108 bpm ECG Measurements Heart Rate 108 AXIS ID [id number] P [id number] QRSd 91 QRS 39 QT 328 T 14 QTc 440 Conclusion Atrial fibrillation...V-rate 88-120, irreg A-activity
== END 2023-12-28 08:33 | disposition home or self-care (01) ==
LOC: DI.CARD 08:33
PROVIDERS: PCP Family Medicine; Visit Provider Internal Medicine Cardiovascular Disease
DX: I48.19 Other persistent atrial fibrillation (principal)
CPT/HCPCS: 93010

== ENCOUNTER 2024-10-27 11:52 | Day surgery (SDC) | payer OTHER, SELFPAY ==
--- NOTE | 2024-10-27 06:58 | W.ANESPRE ---
General Info Date of Service Date Performed: 10/27/24 Height: 6 ft Weight: 104.496 kg Body Mass Index (BMI): 31.2 Surgical Procedure: Operation Date: 10/27/24 12:50 Proposed Procedure Side Surgeon p Colonoscopy Lorrie LARSON MD Meds Allergies and Home Medications Allergies Allergy/AdvReac Type Severity Reaction Status Date / Time Penicillins Allergy unknown Verified 10/27/24 12:15 Home Medication ?Medication ?Instructions ?Recorded fexofenadine 180 mg tablet 180 mg PO DAILY 09/10/23 (Breonna Allergy) apixaban 5 mg tablet 5 mg PO BID #180 tabs 11/12/23 bisacodyl 5 mg tablet,delayed 5 mg PO ONCE colonscopy bowel prep 09/04/24 release (Dulcolax (bisacodyl)) #4 tabs multivitamin 1 tab PO DAILY 09/04/24 polyethylene glycol 3350 17 238 g PO ONCE colonoscopy prep 09/04/24 gram/dose oral powder #238 grams PFSH Active Problems Active Problems: Problem Status Onset Code Family history of heart disease Acute Z82.49 Persistent atrial fibrillation Acute I48.19 Inguinal hernia of left side without obstruction or gangrene Acute K40.90 Medical History Medical History Comments:: History of asthma per patient Surgical History Surgical History H/O inguinal hernia repair (10/2023) [facility] Tobacco Smoking/Tobacco Use Status: Former Tobacco Use Second hand exposure: No Alcohol Alcohol Intake: never Substance Use Substance use: Never Substance use type: does not use Vital Signs and Lab Results Lab Results Blood Type / Crossmatch: No Data to Display Complete Blood Count: No Data to Display Complete Metabolic Panel: No Data to Display Liver Function Panel: No Data to Display Coagulation Panel: No Data to Display Cardiac Panel: No Data to Display Arterial Blood Gas: No Data to Display Venous Blood Gas: No Data to Display Pancreas Panel: No Data to Display Thyroid Panel: No Data to Display Infectious Disease: No Data to Display Blood Cultures: No Data to Display Toxicology Panel: No Data to Display Imaging and Studies Imaging and Studies Study information below may be from another EMR and interpreted by another provider. Please see original notes in EMR for more complete details. EKG Summary: DATE/TIME OF SERVICE: 11/12/23 1016 : 1970 PERFORMING LOCATION: ODM APPROVED REPORT Exam: Resting ECG Reason for Exam: baseline Patient Location: O HR:91 bpm ECG Measurements Heart Rate 91 AXIS [place] [id number] P [id number] QRSd 97 QRS 56 QT 377 T34 QTc 464 Conclusion Atrial fibrillation...V-rate 79-106, irreg A-activity Baseline wander in lead(s) V5 Echocardiogram Summary: Date of Exam: 12/06/23 Sex: M Admission Date: 12/06/23 : 1970 Age: 53 APPROVED REPORT EXAM: Comprehensive 2D, Doppler, and color-flow Echocardiogram Patient Location: Out-Patient Director Informatics: Valeria Colon RDCS (AE) Indications: New onset A Fib, Family h/o heart disease Other Information Study Quality: Adequate. Technically limited study due to body habitus, arrhythmia. Conclusion Normal left ventricualar wall thickness and chamber size . EF is 55 %. Patient is in atrial fibrillation with beat to beat variation Normal right ventricular size and function Mildly enlarged left atrium. Normal right atrial size There is no structural or hemodynamically significant valvular disease Estimated irhgt ventricular systolic pressure is 16 mmHg Dilated ascending aorta 4.27 cm Anesthesia Assessment and Plan Anesthesia History Personal History: No History of Anesthesia Complications Family History: No Family History of Anesthesia Complications Exercise Tolerance Exercise Tolerance: Metabolic Equivalents>4 Pertinent Negatives Pertinent Negatives: No Symptoms of GERD and No History of CVA/TIA Cardiac & Pulmonary Exam Cardiac Exam: Normal S1/S2 Heart Sounds Pulmonary Exam: Clear Bilateral Breath Sounds Cardiac and Pulmonary Comment:: Remote history of asthma, states he only uses his rescue inhaler once a year if that Implantable Cardiac Device Does patient have a Pacemaker or an ICD?: No Airway Exam Known Difficult Airway: No Mallampati Class: 2 Mouth Opening: Normal (> 3cm) Thyromental Distance: Greater than 3 cm Neck Range of Motion: Full ROM Neck Circumference: Thick Teeth Condition: Normal Dentition ASA Classification ASA Score: ASA 2 Emergency Case?: No NPO Status NPO Status: NPO Clears >2 hours, Solids >8 hours Anesthesia Plan Resuscitation Status: Full Code Anesthesia Technique: General Anesthesia Airway Planned: Natural Airway Monitors Used: Standard Monitors Preoperative Comments:: 53 yo male for colo Sig PMHx: afib (apixaban), never smoker, EKG: afib ECHO: LVEF 55%, afib, no sig valve issues. ascending Ao 4.27 Previous Anes: - cardioversion, prop, natural airway, no issues. - Hernia, prop/sevo, LMA 5, no issues.
[2024-10-27 12:00] VITALS: BP 121/80; PULSE 54; RESP 18; TEMP 36.3; O2SAT 98
[2024-10-27] MEDS: Lactated Ringers 1,000 ML 80 ML IV (12:27)
[2024-10-27 13:36] VITALS: BMI 31.2
--- NOTE | 2024-10-27 14:09 | W.PM.HP.N ---
Date of service: 10/27/24 Time of Service: 14:09 Assessment and Plan Assessment and plan (1) Inguinal hernia of left side without obstruction or gangrene: Status: Acute Assessment and plan: 54-year-old male who has a left inguinal hernia. Given his experiences with his right inguinal hernia, he would like to proceed with surgical repair. I think this is reasonable. He is fairly young. It will only worsen over time. We talked about open versus laparoscopic approach. I explained that the recovery time for the laparoscopic approach is a bit shorter than the open approach. We talked about the risks of recurrence, amongst other things. His knee I offered to try and get him scheduled in the next month or 2 for a laparoscopic left inguinal hernia repair with myself. He is definitely interested. We will see if we can coordinate this with the office. (2) Colon cancer screening: Status: Inactive Assessment and plan: 54-year-old male who is indicated for screening colonoscopy. We discussed the procedure in detail. We discussed the risks of bleeding from biopsy sites, perforation of the colon, missing small lesions, amongst other things. He expressed understanding. He has signed informed consent. We will go ahead and proceed with screening colonoscopy today as planned. History of Present Illness History of Present Illness Chief Complaint: Colon cancer screening Narrative: Patient is a 54-year-old male who has never had a screening colonoscopy. He reports regular bowel movements. He denies blood in the stool or on the toilet when he wipes. He denies any other GI symptoms. He primarily was prompted to have a screening colonoscopy because he has a left inguinal hernia that he would like to have repaired. Dr. Polanco saw him in the office and felt that he should have his colonoscopy first. Today he denies any significant symptoms on the left. It does get a bit tender if he has a strenuous day and it protrudes a lot. He typically goes down when he lies flat. He does not have any sharp pains. He did have a right inguinal hernia repaired about a year ago in October 2023. He reports that he had that hernia for quite a few years and it did get larger over time. He also reports that he had a recurrence after the first operation and had to have it operated on a second time. Per his description it sounds like he had open right inguinal hernia repair done twice. 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 He does some heavy lifting at work but this can be avoided if needed. Review of Systems All systems reviewed & are unremarkable except as noted in HPI and below PFSH All Active Problems Family history of heart disease (Acute) Persistent atrial fibrillation (Acute) Inguinal hernia of left side without obstruction or gangrene (Acute) Surgical History H/O inguinal hernia repair (10/2023) [place] Social History Smoking/Tobacco Use Status: Former Tobacco Use Quit Date: 08/23/03 Second Hand Exposure: No Smoking risk assessment performed?: Yes Alcohol Intake: never Drug use: Never Substance use type: does not use Adopted: No Caregiver/Support person: No Household members: significant other Housing: house Number of Children: 2 Communication Needs: None Education Level: college Do you need help understanding health information?: Never Pets and animals: Yes (3 Cats 1 Dog) Pets and animals: cat(s) and dog(s) Sexually active: Yes Do you think of yourself as: straight/heterosexual Current gender identity: male What is your relationship status?: living with partner How often do you talk on the phone with friends or family?: three or more times per week How often do you get together with friends or relatives?: three or more times per week Do you belong to any clubs or organized social groups?: no Panel score (0-1 are the most socially isolated patients): 2 What type of physical activity do you participate in: none Christen/Uatsdin: None Special christen needs: No Seatbelt use: always Drive intox or ride w/intox delivery driver: No Do you feel safe at home: Yes Do you feel safe in your relationship?: Yes Meds Allergies and Home Medications Allergies Allergy/AdvReac Type Severity Reaction Status Date / Time Penicillins Allergy unknown Verified 10/27/24 12:15 Home Medications ?Medication ?Instructions ?Recorded ?Confirmed ?Type fexofenadine 180 mg tablet 180 mg PO DAILY 09/10/23 10/27/24 History (Breonna Allergy) apixaban 5 mg tablet 5 mg PO BID #180 tabs 11/12/23 10/26/24 Rx bisacodyl 5 mg tablet,delayed 5 mg PO ONCE colonscopy bowel prep 09/04/24 10/27/24 Rx release (Dulcolax (bisacodyl)) #4 tabs multivitamin 1 tab PO DAILY 09/04/24 10/27/24 History polyethylene glycol 3350 17 238 g PO ONCE colonoscopy prep 09/04/24 10/27/24 Rx gram/dose oral powder #238 grams Exam Narrative Exam Narrative: GENERAL APPEARANCE: Alert, healthy appearance, oriented, x 3,? in no acute distress HYDRATION: Well hydrated HEAD, EYES, EARS, NECK, THROAT: Head is normocephalic, pupils equal, round, reactive to light and accommodation, ocular movement intact, sclera clear and no jaundice. ?Dentition intact. LUNGS: normal respiration/normal chest excursion. ?Clear to auscultation bilaterally. ?No wheeze. ?HEART: A-fib. Rate controlled. ABDOMEN: soft and non-tender to palpation.? Normal bowel sounds.? Previous right inguinal hernia surgery is clean dry and intact and well-healed with no signs of recurrence and no pain. Patient now has a moderate left-sided inguinal hernia. This is soft and reducible and nontender. Results Last Vital Signs Temp 36.3 C L 10/27/24 12:00 Pulse 54 L 10/27/24 12:00 Resp 18 10/27/24 12:00 BP 121/80 10/27/24 12:00 Pulse Ox 98 10/27/24 12:00 Time Spent Time spent with Patient: <40 minutes Time was spent: preparing to see the patient(eg.review tests) and counseling the patient
--- NOTE | 2024-10-27 14:41 | W.PM.OP ---
Operative Note Operative Note PRE-OP DIAGNOSIS: Colon cancer screening POST-OP DIAGNOSIS: same Colon polyp SURGEON: Lorrie Bryson [facility] ANESTHESIA TYPE: MAC Refer to Anesthesia Record PATHOLOGY: other (transverse colon polyp) COMPLICATIONS: None Patient was transported to: PACU Patient's condition: stable Findings: 1 subcentimeter polyp Procedure Description: After obtaining informed consent, patient was brought back to the operating room. He was turned on his left side and connected to the monitors. Timeout was performed. Propofol was administered by the nurse water filter cleaner. I began by performing a digital rectal exam. This was unremarkable. I inserted the colonoscope and advanced the length of the colon. I attained the cecum as identified by the appendiceal orifice and the ileocecal valve. I intubated the ileocecal valve to view the terminal ileum. This had a normal appearance. I withdrew into the cecum. This also had a normal appearance. His prep was good. I withdrew along the ascending colon and into the transverse colon. In the transverse colon I removed a 2 to 3 mm sessile polyp with a cold biopsy forcep. This was sent to pathology. I withdrew along the descending colon and sigmoid colon. No further mucosal abnormalities were noted. No diverticulosis was noted. I withdrew into the rectum. I did retroflex. This was all unremarkable. I decompressed the sigmoid and the rectum and withdrew the scope entirely. Patient tolerated well. He went to recovery in stable condition. Disposition: Patient will be discharged home later today. We will call him with the pathology report. He will likely need a repeat colonoscopy in 7 to 10 years, pending pathology. Date of Procedure: 10/27/24
[2024-10-27 14:45] VITALS: BP 105/85; PULSE 96; RESP 18; TEMP 36.7; O2SAT 95
--- NOTE | 2024-10-27 15:01 | W.ANESPOSTOP ---
Postoperative Evaluation Date, Time and Location Date Performed: 10/27/24 Time Performed: 15:01 Patient Location: Day Surgery Unit Vital Signs Most Recent Imported Vital Signs: Most Recent Vital Signs Temp Pulse Resp BP Pulse Ox 36.7 C 96 H 18 105/85 95 10/27/24 14:45 10/27/24 14:45 10/27/24 14:45 10/27/24 14:45 10/27/24 14:45 Pain Score Most Recent Pain Score: Most Recent Pain Score Pain Level 0 10/27/24 14:45 Assessment Mental Status: Awake (Alert & Oriented to Patient Baseline) Airway and Respiratory Function: Patent airway with normal (patient baseline) respiratory exam Cardiovascular Function: Hemodynamically Stable Hydration Status: Adequately Hydrated Nausea & Vomiting: No Nausea or Vomiting Pain: Pt. Denies Any Pain Peripheral Nerve Block: Patient did not receive a nerve block
[2024-10-27 15:07] VITALS: BP 115/78; PULSE 84; RESP 16; TEMP 36.2; O2SAT 96
== END 2024-10-27 11:53 | disposition home or self-care (01) ==
PROVIDERS: PCP Family Medicine; Visit Provider Surgery
PROC: 0DJD8ZZ Inspection of Lower Intestinal Tract, Via Natural or Artificial Opening Endoscopic (ICD-10-PCS; CPT 45378; principal; 2024-10-27 12:45)
DX: D12.3 Benign neoplasm of transverse colon (principal); Z12.11 Encounter for screening for malignant neoplasm of colon
CPT/HCPCS: 45380; 88305; J2003; J2704